=== PATIENT | female | born 1970 | race Caucasian/White ===

== ENCOUNTER 2022-09-24 08:11 | Day surgery (SDC) | payer OTHER ==
[2022-09-24 08:41] LABS: Urine Specific Gravity/Preg >1.030 (1.005-1.030)
[2022-09-24] MEDS ORDERED: Ringers Lactate 1,000 ML IV ONE (08:52)
[2022-09-24 09:22] LABS: Potassium 4.4 mEq/L (3.5-5.1)
[2022-09-24] MEDS ORDERED: propofoL 200 MG/20 ML VIAL IV ONE ×2 (11:34→11:35)
[2022-09-24] MEDS ORDERED: LIDOCAINE 1% MPF 30 ML VIAL ONE (11:35)
[2022-09-24 13:31] VITALS: BP 125/87; TEMP 97.1; O2SAT 98
--- NOTE | 2022-09-27 13:13 | EKG ---
Test Date: 2022-09-24 Test Time: 08:30:02 [employer]: JOHN MEASUREMENT RESULTS: Intervals: Rate: 55 MA: 158 QRSD: 92 QT: 430 QTc: 411 [place]: P: 35 MA: 158 QRS: -83 T: 2 INTERPRETIVE STATEMENTS: Sinus bradycardia with sinus arrhythmia Left axis deviation Pulmonary disease pattern Incomplete right bundle branch block Abnormal ECG No previous ECG available for comparison Electronically Signed On 09-27-22 13:09:34 CDT by Huan Brown
== END 2022-09-24 13:00 | disposition home or self-care (01) ==
LOC: OR 08:11
PROVIDERS: ATTEND Surgery
PROC: 0DBH8ZX Excision of Cecum, Via Natural or Artificial Opening Endoscopic, Diagnostic (ICD-10-PCS; principal; 2022-09-24 09:45)
DX: Z12.11 Encounter for screening for malignant neoplasm of colon (principal); D12.0 Benign neoplasm of cecum
CPT/HCPCS: 36415; 80048; 81025; 88304; 88305; 93005; J2001; J2704; J7120